=== PATIENT | female | born 1935 | race Two or more races ===

== ENCOUNTER 2024-09-30 12:40 | Emergency (ER) | payer OTHER, MEDICAID ==
[~2024-09-30] VITALS: Ht 165.1 cm; Wt 59.0 kg
[2024-09-30 14:05] LABS: BASOPHILS % (AUTO) 0.8 % (0.0-2.0); EOSINOPHILS % (AUTO) 0.5 % (0.0-7.0); HEMATOCRIT 24.1 % (31.2-41.9); HEMOGLOBIN 8.2 g/dL (10.9-14.3); LYMPHOCYTES # (AUTO) 0.7 K/uL (0.8-4.8); LYMPHOCYTES % (AUTO) 12.5 % (20.5-51.5); MEAN CORPUSCULAR HEMOGLOBIN 32.3 uug (24.7-32.8); MEAN CORPUSCULAR HGB CONC 34 g/dL (32.3-35.6); MEAN CORPUSCULAR VOLUME 94.8 fL (75.5-95.3); MONOCYTES # (AUTO) 0.6 K/uL (0.1-1.30); MONOCYTES % (AUTO) 9.5 % (0.0-11.0); NEUTROPHILS # (AUTO) 4.4 K/uL (1.8-8.9); NEUTROPHILS % (AUTO) 76.7 % (38.5-71.5); PLATELET COUNT (AUTO) 147 K/uL (179-408); RED BLOOD CELL COUNT(AUTO) 2.55 MIL/uL (3.63-4.92); RED CELL DISTRIBUTION WIDTH 17.3 % (12.3-17.7); WHITE BLOOD COUNT (AUTO) 5.8 K/uL (3.8-11.8)
[2024-09-30 14:08] LABS: DIFFERENTIAL COMMENT 1
[2024-09-30 14:12] LABS: CALCIUM 8.8 mg/dL (8.5-10.1); CARBON DIOXIDE 26 mmol/L (21-32); CHLORIDE 105 mmol/L (98-107); CREATININE 0.6 mg/dL (0.6-1.3); GLUCOSE 98 mg/dL (74-106); POTASSIUM 3.9 mmol/L (3.5-5.1); SODIUM SERUM 139 mmol/L (136-145); UREA NITROGEN, BLOOD 11 mg/dL (7-18)
[2024-09-30 14:19] LABS: ALANINE AMINOTRANSFERASE 32 U/L (14-59); ALBUMIN 3.3 g/dL (3.4-5.0); ALKALINE PHOSPHATASE 95 U/L (50-136); ASPARTATE AMINOTRANSFERASE 84 U/L (15-37); BILIRUBIN,DIRECT 0.3 mg/dL (0.0-0.2); BILIRUBIN,TOTAL 1.3 mg/dL (0.2-1.0); TOTAL PROTEIN, SERUM 6.8 g/dL (6.4-8.2)
[2024-09-30] MEDS: IV NS 1000 ML 1,000 ML IV ONE (14:35)
[2024-09-30 17:25] VITALS: O2SAT 96
[2024-09-30 18:36] LABS: *BILIRUBIN,URIN NEGATIVE (NEGATIVE); *CLARITY,URINE CLEAR (CLEAR); *COLOR,URINE YELLOW (YELLOW); *KETONES,URINE NEGATIVE (NEGATIVE); *PROTEIN,URINE NEGATIVE (NEGATIVE); *UROBILINOGEN,URINE 0.2 E.U./dl (NORMAL); LEUKOCYTE ESTERASE ,URINE NEGATIVE (NEGATIVE); NITRITE, URINE NEGATIVE (NEGATIVE); UGLUCOSE NEGATIVE (NEGATIVE)
[2024-09-30 18:50] LABS: *BLOOD, URINE TRACE (NEGATIVE)
[2024-09-30 18:59] LABS: *AMPHETAMINE, URINE NEGATIVE (NEGATIVE); *BARBITURATE, URINE NEGATIVE (NEGATIVE); *BENZODIAZEPINE, URINE NEGATIVE (NEGATIVE); *CANNABINOID, URINE NEGATIVE (NEGATIVE); *COCCAINE, URINE NEGATIVE (NEGATIVE); *OPIATE, URINE NEGATIVE (NEGATIVE); *PHENCYCLIDINE SCREEN,URINE NEGATIVE (NEGATIVE); FENTANYL, URINE NEGATIVE (NEGATIVE)
[2024-09-30 19:11] LABS: BACTERIA,URINE MODERATE /HPF (NONE SEEN); SQUAMOUS EPITHELIAL CELL,UR FEW /HPF (NONE SEEN); WBC,URINE 0-3 /HPF (0-3)
== END 2024-09-30 21:20 | disposition short-term general hospital (02) ==
LOC: ER 12:40
DX: R53.1 Weakness (principal); R55 Syncope and collapse; D64.9 Anemia, unspecified; F03.90 Unspecified dementia, unspecified severity, without behavioral disturbance, psychotic disturbance, mood disturbance, and anxiety; I11.9 Hypertensive heart disease without heart failure; I25.10 Atherosclerotic heart disease of native coronary artery without angina pectoris; I35.0 Nonrheumatic aortic (valve) stenosis; J90 Pleural effusion, not elsewhere classified; Z86.73 Personal history of transient ischemic attack (TIA), and cerebral infarction without residual deficits; Z95.2 Presence of prosthetic heart valve; Z88.1 Allergy status to other antibiotic agents
CPT/HCPCS: 99285; 96361; 70450; 96360; 71045; 80076; 80048; 85025; 85730; 87040; 36415; 71250; 93005 ×2; 83605; 80307; 81001; J7040; 87086; A4606; A4663